=== PATIENT | male | born 1980 | race Caucasian/White ===

== ENCOUNTER 2017-09-03 14:28 | Emergency (ER) | payer OTHER ==
[~2017-09-03] VITALS: Ht 185.4 cm; Wt 95.3 kg
[2017-09-03 15:03] VITALS: BP 169/88
[2017-09-03] MEDS ORDERED: CYCL10TA2 PO (15:23)
[2017-09-03] MEDS ORDERED: IBUP-1060 PO (15:23)
--- NOTE | 2017-09-03 15:23 | PHYS DOC ---
Past Medical History Past Medical History: No Pertinent History Past Surgical History: No Surgical History Alcohol Use: Occasionally Drug Use: None Adult General Chief Complaint Chief Complaint: BACK PAIN OR INJURY [facility] HPI Patient is a 36 year old male presents to the ED complaining of back pain x 3 days. 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 States pain to upper back. Describes the pain as sharp. Rates the pain as 7/10. States similar symptoms in the past improved with flexeril. Denies headache, fever, n/v, saddle anesthesia, bowel/bladder changes, chest pain, abdominal pain or shortness of breath. Review of Systems Review of Systems Constitutional: Denies fever or chills [] Eyes: Denies change in visual acuity, redness, or eye pain [] HENT: Denies nasal congestion or sore throat [] Respiratory: Denies cough or shortness of breath [] Cardiovascular: No additional information not addressed in HPI [] GI: Denies abdominal pain, nausea, vomiting, bloody stools or diarrhea [] : Denies dysuria or hematuria [] Musculoskeletal: Complains of back pain. Denies joint pain [] Integument: Denies rash or skin lesions [] Neurologic: Denies headache, focal weakness or sensory changes [] Endocrine: Denies polyuria or polydipsia [] All other systems were reviewed and found to be within normal limits, except as documented in this note. Allergies Allergies Allergies Coded Allergies Type Severity Reaction Last Updated Verified No Known Drug Allergies 09/03/17 No Physical Exam Physical Exam Constitutional: Well developed, well nourished, no acute distress, non-toxic appearance. [] HENT: Normocephalic, atraumatic, oropharynx moist Neck: Normal range of motion, no tenderness, supple, no stridor. [] Cardiovascular:Heart rate regular rhythm, no murmur [] Lungs & Thorax: Bilateral breath sounds clear to auscultation [] Abdomen: Bowel sounds normal, soft, no tenderness, no masses, no pulsatile masses. [] Skin: Warm, dry, no erythema, no rash. [] Back: MILD RIGHT LATERAL UPPER BACK MUSCLE SPASM. NO BONY TENDERNESS., no CVA tenderness. [] Extremities: No tenderness, no cyanosis, no clubbing, ROM intact, no edema. [] Neurologic: Alert and oriented X 3, normal motor function, normal sensory function, no focal deficits noted. [] Psychologic: Affect normal, judgement normal, mood normal. [] Current Patient Data Vital Signs Vital Signs Date Time Temp Pulse Resp B/P (MAP) Pulse Ox O2 Delivery O2 Flow Rate FiO2 09/03/17 15:03 98.7 95 16 97 Room Air 98.7 EKG EKG [] Radiology/Procedures Radiology/Procedures [] Course & Med Decision Making Course & Med Decision Making Pertinent Labs and Imaging studies reviewed. (See chart for details) []No bony tenderness. No xray warranted. Patient requesting flexeril. States he has taken in the past and it has alleviated symptoms. No focal neuro deficits. Discussed follow-up with orthopedics this week. Discussed reasons to return to the ED. Patient understands and agrees with plan. Dragon Disclaimer Dragon Disclaimer This electronic medical record was generated, in whole or in part, using a voice recognition dictation system. Departure Departure Impression: Primary Impression: Back pain Additional Impression: Muscle spasm Disposition: 01 HOME, SELF-CARE Condition: STABLE Referrals: NON,STAFF (PCP) MIROSLAVA CUNNINGHAM MD Patient Instructions: Back Pain, Adult Scripts Cyclobenzaprine Hcl (CYCLOBENZAPRINE HCL) 10 Mg Tablet 1 TAB PO TID, #15 TAB Prov: RACIEL CHANEY 09/03/17 Ibuprofen (IBUPROFEN) 800 Mg Tablet 800 MG PO PRN Q6HRS Y for INFLAMMATION, #20 TAB Prov: RACIEL CHANEY 09/03/17 Problem Qualifiers RACIEL CHANEY Sep 03, 2017 15:23
== END 2017-09-03 15:33 | disposition home or self-care (01) ==
LOC: ER 14:28
DX: M54.6 Pain in thoracic spine (principal); R25.2 Cramp and spasm
CPT/HCPCS: 99283

== ENCOUNTER → 2018-12-09 | Outpatient (CLI) | payer OTHER ==
[~2018-12-09] MED LIST: CYCL10TA2 PO; IBUP-1060 PO
--- NOTE | 2018-12-09 16:40 | RAD ---
Indication:lt testicle pain TECHNIQUE: Grayscale, color Doppler and spectral waveform is of the testicles obtained. COMPARISON:None FINDINGS: The right testicle measures 5.0 x 3.3 x 2.5 cm and is homogeneous in echogenicity without focal lesion. The right testicle demonstrates evidence of blood flow. No hydrocele. The epididymis is within normal limits. The left testicle measures 4.1 x 3.0 x 2.4 cm and is homogeneous in echogenicity without focal lesion. The left testicle demonstrates evidence of blood flow. Small hydrocele. No hyperemia seen in the epididymis. Left varicoceles seen. IMPRESSION: 1. Bilateral testicles demonstrates evidence of blood flow without focal lesion. 2. Small left hydrocele with varicoceles. Electronically signed by: Guerrero Arriaga DO (12/09/2018 4:37 PM) [facility]
== END | disposition home or self-care (01) ==
LOC: US 16:00
PROVIDERS: ATTEND Emergency Medicine
DX: N43.3 Hydrocele, unspecified (principal); I86.1 Scrotal varices
CPT/HCPCS: 76870